=== PATIENT | male | born 1985 | race Caucasian/White ===

== ENCOUNTER 2016-08-16 16:43 | Emergency (ER) | payer OTHER ==
[2016-08-16 16:46] VITALS: BMI 37.3
[2016-08-16 16:54] VITALS: BP 161/95; PULSE 87; TEMP 98.4
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
[2016-08-16 18:43] VITALS: RESP 18; O2SAT 99
--- NOTE | 2016-08-17 08:10 | RAD ---
HISTORY: cp COMPARISON: No prior. TECHNIQUE: Chest PA and lateral FINDINGS: LUNGS: No active pulmonary disease. PLEURA: No significant pleural effusion identified. No pneumothorax apparent. CARDIOVASCULAR: Normal. OSSEOUS STRUCTURES: No significant abnormalities. VISUALIZED UPPER ABDOMEN: Normal. OTHER FINDINGS: None. IMPRESSION: No active disease.
--- NOTE | 2016-08-17 10:52 | CARD ---
APPROVED REPORT EKG Measurement Heart [id number] <Conclusion> Normal sinus rhythm Normal ECG
== END 2016-08-16 18:43 | disposition home or self-care (01) ==
LOC: EDSEX → ED 16:43
DX: R07.89 Other chest pain (principal)

== ENCOUNTER 2017-01-25 19:22 | Emergency (ER) | payer OTHER ==
[2017-01-25 19:23] VITALS: BMI 37.3
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
[2017-01-25 19:39] VITALS: TEMP 98.7
[2017-01-25] MEDS ORDERED: TDAP Vaccine 0.5 mL Syr IM ONE (20:01)
[2017-01-25] MEDS ORDERED: Oxycodone/Acetaminophen 5/325 mg Tab PO STA (20:02)
[2017-01-25] MEDS ORDERED: Lidocaine 1% Inj (20ml) ONE (21:05)
[2017-01-25 21:54] VITALS: BP 132/78; PULSE 78; RESP 18; O2SAT 98
--- NOTE | 2017-01-26 09:25 | RAD ---
PROCEDURE: Left ring finger radiographs. HISTORY: lt. hand 4th digit finger laceration COMPARISON: None. TECHNIQUE: AP radiograph of the left hand, as well as spot oblique and lateral images of left ring finger were obtained. FINDINGS: LEFT RING FINGER: Left ring finger normal, without fracture of focal lesion. Remainder of the left hand (as seen on the AP view) is grossly unremarkable. JOINTS: Normal. SOFT TISSUES: No radiopaque foreign body identified. OTHER FINDINGS: None. IMPRESSION: Normal left ring finger radiographs.
== END 2017-01-25 22:16 | disposition home or self-care (01) ==
LOC: ED 19:22
DX: S61.215A Laceration without foreign body of left ring finger without damage to nail, initial encounter (principal); W26.8XXA Contact with other sharp object(s), not elsewhere classified, initial encounter; Z23 Encounter for immunization

== ENCOUNTER 2017-02-19 20:08 | Emergency (ER) | payer OTHER ==
[2017-02-19 20:14] VITALS: BMI 38.9
[2017-02-19 20:25] VITALS: BP 155/84; PULSE 91; RESP 18; TEMP 98.7; O2SAT 98
--- NOTE | 2017-02-19 22:07 | ED PDOC ---
Arrival/HPI - General Chief Complaint: Wound Check Time Seen by Provider: 02/19/17 20:32 Historian: Patient - History of Present Illness Narrative History of Present Illness (Text): 02/19/17 22:04 31yo male in ED for suture removal from his right hand. sutures was placed here in ED on 01/25/2017. He denies fever, purulent discharge from wound, redness. Past Medical History - Provider Review Nursing Documentation Reviewed: Yes - Infectious Disease Hx of Infectious Diseases: None - Cardiac Hx Cardiac Disorders: No - Pulmonary Hx Respiratory Disorders: No - Neurological Hx Neurological Disorder: No - HEENT Hx HEENT Disorder: Yes - Renal Hx Renal Disorder: No - Endocrine/Metabolic Hx Endocrine Disorders: No - Hematological/Oncological Hx Blood Disorders: No - Integumentary Hx Dermatological Disorder: No - Musculoskeletal/Rheumatological Hx Musculoskeletal Disorders: No - Gastrointestinal Hx Gastrointestinal Disorders: No - Genitourinary/Gynecological Hx Genitourinary Disorders: No - Psychiatric Hx Psychophysiologic Disorder: No Hx Substance Use: No - Anesthesia Hx Anesthesia: No Family/Social History - Physician Review Nursing Documentation Reviewed: Yes Family/Social History: Unknown Family HX Smoking Status: Never Smoked Hx Alcohol Use: No Hx Substance Use: No Allergies/Home Meds Allergies/Adverse Reactions: Allergies No Known Allergies Allergy (Unverified 01/25/17 19:34) Home Medications: Home Meds Medication Instructions Recorded Confirmed No Known Home Med 02/19/17 02/19/17 Review of Systems - Physician Review All systems were reviewed & negative as marked: Yes - Review of Systems Constitutional: Normal Eyes: Normal ENT: Normal Respiratory: Normal Cardiovascular: Normal Gastrointestinal: Normal Genitourinary Male: Normal Musculoskeletal: Normal Skin: Other (suture removal) Neurological: Normal Endocrine: Normal Hemo/Lymphatic: Normal Psychiatric: Normal Physical Exam Vital Signs Reviewed: Yes Vital Signs Temp Pulse Resp BP Pulse Ox 02/19/17 20:24 98.7 F 91 H 18 155/84 H 98 Temperature: Afebrile Blood Pressure: Normal Pulse: Regular Respiratory Rate: Normal Appearance: Positive for: Well-Appearing, Non-Toxic, Comfortable Pain Distress: None Mental Status: Positive for: Alert and Oriented X 3 - Systems Exam Head: Present: Atraumatic, Normocephalic Pupils: Present: PERRL Extroacular Muscles: Present: EOMI Conjunctiva: Present: Normal Mouth: Present: Moist Mucous Membranes Neck: Present: Normal Range of Motion Respiratory/Chest: Present: Clear to Auscultation, Good Air Exchange. No: Respiratory Distress, Accessory Muscle Use Cardiovascular: Present: Regular Rate and Rhythm, Normal S1, S2. No: Murmurs Abdomen: Present: Normal Bowel Sounds. No: Tenderness, Distention, Peritoneal Signs Back: Present: Normal Inspection Upper Extremity: Present: Normal Inspection. No: Cyanosis, Edema Lower Extremity: Present: Normal Inspection. No: Edema Neurological: Present: GCS=15, CN II-XII Intact, Speech Normal Skin: Present: Warm, Dry, Normal Color, Other (7sutures noted in place to left 4th fabian finger and hand. No erythema. No swelling. No discharge). No: Rashes Psychiatric: Present: Alert, Oriented x 3, Normal Insight, Normal Concentration Medical Decision Making ED Course and Treatment: 02/20/17 00:08 Pt presented for stated history. sutures was cleaned with betadine. 7interrupted sutures was removed. Edges appear well approximated. Bacitracine applied. PT advised to keep wound clean and dry. referred to his PMD/clinic Disposition/Present on Arrival - Present on Arrival Any Indicators Present on Arrival: No History of DVT/PE: No History of Uncontrolled Diabetes: No Urinary Catheter: No History of Decub. Ulcer: No History Surgical Site Infection Following: None - Disposition Have Diagnosis and Disposition been Completed?: Yes Diagnosis: Visit for suture removal Disposition: HOME/ ROUTINE Disposition Time: 22:10 Patient Plan: Discharge Patient Problems: Current Active Problems Problem Status Onset Visit for suture removal Acute Condition: STABLE Discharge Instructions (ExitCare): Stitches Removal (ED) Additional Instructions: Keep wound clean and dry Follow up with your doctor Return to ED for any new or worsening symptoms Referrals: PCP,NO [Primary Care Provider] - Follow up with primary [facility] [place] - Follow up with primary Forms: Appsperse (Urdu)
== END 2017-02-19 22:18 | disposition home or self-care (01) ==
LOC: ED 20:08
DX: Z48.02 Encounter for removal of sutures (principal)